=== PATIENT | female | born 1950 | race African-American/Black ===

== ENCOUNTER 2018-07-24 08:14 | Day surgery (SDC) | payer MEDICARE, MEDICAID ==
[2005-06-22 08:53] VITALS: BP 116/70
[~2018-07-24] VITALS: Ht 170.2 cm; Wt 135.5 kg
[2018-07-24 09:05] LABS: HEMOGLOBIN 11.4 g/dl (12.5-16.0); MEAN CELL VOLUME 90 fl (80.0-100.0); MEAN CORPUSCULAR HEMOGLOBIN 28 pg (27.0-31.0); MEAN CORPUSCULAR HGB CONC 31 g/dl (33.0-37.0); MEAN PLATELET VOLUME 10.9 fl (7.4-10.4); PLATELET COUNT 185 K/mm3 (130-400); RED BLOOD COUNT 4.05 M/mm3 (4.10-5.30); REDCELL DISTRIBUTION WIDTH-CV 15.7 % (11.5-14.5)
[2018-07-24 09:07] LABS: HEMATOCRIT 36.4 % (37.0-47.0)
[2018-07-24 09:10] LABS: INR 1.2 (0.8-3.0)
[2018-07-24 09:16] LABS: CALCIUM 9.7 mg/dL (8.4-10.2); CREATININE, serum 1.04 (0.52-1.25); POTASSIUM 3.4 mmol/L (3.4-5.0)
[2018-07-24] MEDS ORDERED: ELIQUIS 5MG PO (09:40)
[2018-07-24] MEDS ORDERED: PROAIR HFA0.09 MG/AC IH (09:40)
[2018-07-24] MEDS ORDERED: SYNTHROID0.1 MG/TAB PO (09:42)
[2018-07-24] MEDS ORDERED: ZIAC 10/6.25M1 UDTAB PO (09:42)
[2018-07-24] MEDS ORDERED: GLUCOPHAGE1000 MG PO (09:43)
[2018-07-24] MEDS ORDERED: ANTIVERT 25MG25 MG PO (09:43)
[2018-07-24] MEDS ORDERED: KLOR-CON 1010 MEQ PO (09:44)
[2018-07-24] MEDS ORDERED: ZOCOR 20MG20 MG PO (09:44)
[2018-07-24] MEDS ORDERED: DEMADEX5 MG PO (09:45)
[2018-07-24] MEDS ORDERED: ULTRAM 50MG TAB50 MG PO (09:46)
--- NOTE | 2018-07-24 10:00 | NUR ---
DR GODWIN INTO SEE PT AND NEED TO BE RESCHEDULED DUE TO ELIQUIS TAKEN . PM IV D'CD, PT DRESSED, DAUGHTER IN ROOM, REVIEWED DISCHARGE INST. FOR PROCEDURE ON PT FOR SATURDAY, OFFICE WILL CALL ON TIME, AND DIRECTIONS WHEN TO TAKE LAST ELIQUIS, MAY TAKE TONIGHT. BUT DO NOT TAKE FRI SAT OR SUN, AND DAY OF PROCEDURE. PT LEFT VIA W/C WITH DAUGHTER
== END 2018-07-24 10:30 | disposition home or self-care (01) ==
LOC: COL.CAR 08:14
PROVIDERS: Internal Medicine Cardiovascular Disease
DX: R94.39 Abnormal result of other cardiovascular function study (principal); I48.2 Chronic atrial fibrillation; Z95.0 Presence of cardiac pacemaker; I10 Essential (primary) hypertension; I38 Endocarditis, valve unspecified; I70.0 Atherosclerosis of aorta; I07.1 Rheumatic tricuspid insufficiency; E78.5 Hyperlipidemia, unspecified; E66.9 Obesity, unspecified; E11.9 Type 2 diabetes mellitus without complications; Z88.6 Allergy status to analgesic agent; Z53.8 Procedure and treatment not carried out for other reasons

== ENCOUNTER 2018-07-28 06:16 | Day surgery (SDC) | payer MEDICARE, MEDICAID ==
[2005-06-22 08:53] VITALS: BP 116/70
[~2018-07-28] VITALS: Ht 170.2 cm; Wt 135.6 kg
[2018-07-28] VITALS (12 sets, daily range): BP systolic 121–159; BP diastolic 64–109; PULSE 60–95; TEMP 98.4
[~2018-07-28 06:16] MED LIST: ANTIVERT 25MG25 MG PO; DEMADEX5 MG PO; ELIQUIS 5MG PO; GLUCOPHAGE1000 MG PO; KLOR-CON 1010 MEQ PO; PROAIR HFA0.09 MG/AC IH; SYNTHROID0.1 MG/TAB PO; ULTRAM 50MG TAB50 MG PO; ZIAC 10/6.25M1 UDTAB PO; ZOCOR 20MG20 MG PO
[2018-07-28 07:09] LABS: HEMATOCRIT 37.7 % (37.0-47.0); HEMOGLOBIN 11.6 g/dl (12.5-16.0); MEAN CELL VOLUME 89 fl (80.0-100.0); MEAN CORPUSCULAR HEMOGLOBIN 28 pg (27.0-31.0); MEAN CORPUSCULAR HGB CONC 31 g/dl (33.0-37.0); MEAN PLATELET VOLUME 10.2 fl (7.4-10.4); PLATELET COUNT 185 K/mm3 (130-400); RED BLOOD COUNT 4.22 M/mm3 (4.10-5.30); REDCELL DISTRIBUTION WIDTH-CV 15.8 % (11.5-14.5)
[2018-07-28 07:14] LABS: INR 1.2 (0.8-3.0); PROTHROMBIN TIME 13.9 SECONDS (9.7-12.8)
[2018-07-28 07:19] LABS: CALCIUM 9.6 mg/dL (8.4-10.2); CREATININE, serum 1.16 (0.52-1.25); POTASSIUM 3.9 mmol/L (3.4-5.0)
[2018-07-28] MEDS ORDERED: TYLENOL 500MG500 MG PO (07:43)
[2018-07-28] MEDS ORDERED: PRENATAL FORMU1 EAC3 PO (07:43)
[2018-07-28] MEDS ORDERED: CALCIUM 600MG+D1 TAB PO (07:44)
--- NOTE | 2018-07-28 08:58 | NUR ---
ALL MEDICATIONS GIVEN VORB WITH MD. SEE MERGE FOR ALL MEDICATION ADMIN TIMES. SEE MERGE FOR ALL RASS ASSESSMENTS DURING AND POST PROCEDURE.
[2018-07-28] MEDS ORDERED: ALDACTONE50 MG PO (09:51)
--- NOTE | 2018-07-28 14:55 | NUR ---
Discharge instructions given to pt.pt verbalizesunderstanding.INT removed,catheter tip intact.Pt ambulated to bathroom,dressing observed clean,dry,intact,and soft to touch.
== END 2018-07-28 15:01 | disposition home or self-care (01) ==
LOC: COL.CAR 06:16
PROVIDERS: Internal Medicine Cardiovascular Disease
DX: R94.39 Abnormal result of other cardiovascular function study (principal); I48.2 Chronic atrial fibrillation; Z95.0 Presence of cardiac pacemaker; I11.0 Hypertensive heart disease with heart failure; I50.1 Left ventricular failure, unspecified; I08.3 Combined rheumatic disorders of mitral, aortic and tricuspid valves; E78.5 Hyperlipidemia, unspecified; E66.9 Obesity, unspecified; E11.9 Type 2 diabetes mellitus without complications
CPT/HCPCS: C1760; C1894; J1644; J2250; J3010; Q9967

== ENCOUNTER 2019-12-11 10:59 | Inpatient (IN) | payer MEDICARE, MEDICAID ==
[~2019-12-11] VITALS: Ht 167.6 cm; Wt 115.5 kg
[~2019-12-11 10:59] MED LIST changes: +ALDACTONE50 MG PO; +CALCIUM 600MG+D1 TAB PO; +CEPHALEXIN500 M1 PO; +PRENATAL FORMU1 EAC3 PO; +TYLENOL 500MG500 MG PO; +VITAMIN C500 MG PO
[2019-12-11 13:56] VITALS: BP 122/70; PULSE 78; TEMP 98.5
[2019-12-11] MEDS ORDERED: ALBUTEROL0.83 MG/ML IH (15:17)
[2019-12-11] MEDS ORDERED: MAG-OX 400400 MG/TAB PO (15:22)
[2019-12-11] MEDS ORDERED: K-DUR 10 MEQ T10 MEQ PO (15:26)
[2019-12-11] MEDS ORDERED: METAMUCIL3.4 GM/DOS PO (15:27)
[2019-12-11 18:10] VITALS: BP 128/62; PULSE 70; TEMP 98.5
--- NOTE | 2019-12-11 18:53 | NUR ---
PATIENT ARRIVED AROUND NOON VIA WC TO ROOM 336. PATIENT WAS HELPED TO BATHROOM AT THIS TIME. MOD ASSIST X1 WITH FWW. PATIENT DENIED PAIN AT THIS TIME. REPORT RECEIVED FROM HUSSEIN AT [employer] PHONE NUMBER [phone]. PATIENT REPORTED ACHING IN RIGHT KNEE THIS LIANA AFTER THERAPY. REPORTS HX OF ARTHRITIS IN THIS KNEE. PATIENT IN BED READING AT BEDSIDE SHIFT REPORT.
--- NOTE | 2019-12-11 19:00 | NUR ---
PT RESTING IN BED. WATCHING TV AND READING PAPERS. NO NEEDS AT THIS TIME. CALL LIGHT IN REACH. BED ALARM SET. DENIES PAIN.
[2019-12-12 05:48] VITALS: BP 144/71; PULSE 63; TEMP 98.6
--- NOTE | 2019-12-12 13:34 | NUR ---
Called Pa to get DC orders faxed over. See med changes. Patient reports arthritis pain, but refused any prn pain meds. Reviewed meds with patient. Denies questions at this time.
--- NOTE | 2019-12-12 14:53 | NUR ---
Patient resting in bed, call light in reach and bed alarm set. Patient attended group therapy this morning. Reviewed med list with patient. Tolerated diet well today. Sister just left for the day following her visit. Patient denies any questions at this time.
[2019-12-12 17:05] VITALS: BP 114/74; PULSE 61; TEMP 97.6
--- NOTE | 2019-12-12 21:00 | NUR ---
PT RESTING IN BED. A&O X3. NO RESP DISTRESS. PT REPORTS ARTHRITIS PAIN BUT DENIES NEED FOR PAIN MED. NO NEEDS AT THIS TIME. CALL LIGHT IN REACH. BED ALARM SET.
[2019-12-13 05:36] VITALS: BP 118/64; PULSE 67; TEMP 97.8
--- NOTE | 2019-12-13 10:46 | NUR ---
Patient did her own hygiene this morning was set up for washing self. Independent with her oral and face hygiene sitting in wheelchair. Set up for dressing upper and lower. Patient denies pain this morning. Very talkative and had multiple family members calling her and visting on the phone this morning. Patient currently resting in wheelchair, call light in reach and alarm set.
--- NOTE | 2019-12-13 14:06 | NUR ---
Plan: TO return home, lives independently. Assessment: SW met with patients in room. Patient reports that she resides in [place]. Patient reports that she drives but has difficulty seeing sometimes due to the pressure in her eyes. Patient reports that she uses the [employer] to support in transportation and food shopping. Patient reports that she also helps others and will drive if she needs too. Patient reports that she uses a cane while in the community. Patient reprots that her PCP is Dr. Guo in [place] and she prefers [facility] on [address]. Pateint reports that she does not have anyone setup for emergency. Declines [facility]. Action: Patient reports concerns of obtaining her over the counter and medical transportation. SW educated on medication supports in community and other supports that she may be eligible for with insurance. Will continue to support for DC needs. medications.
--- NOTE | 2019-12-13 15:44 | NUR ---
Patient visiting with sister at this time sitting in her bed. She is working on her menu. Will continue to monitor.
[2019-12-13 17:14] VITALS: BP 112/71; PULSE 70; TEMP 98.4
--- NOTE | 2019-12-13 21:00 | NUR ---
PT SITTING IN RECLINER. WATCHING FOOTBALL ON TV. DENIES ANY NAUSEA. EATING HER SALAD FROM DINNER. ASSISTED TRANSFER TO BED MIN 1 ASSIST. ALITTLE UNSTEADY FROM SIT TO STAND. SLOW PACE. NEEDED ASSIST LIFTING LEGS INTO BED, SCD'S ON NOW BILAT - AGREED FOR ALITTLE WHILE. CALL LIGHT IN REACH. BED ALARM SET.
--- NOTE | 2019-12-14 00:13 | NUR ---
ASSITED PT TO BR W/ WALKER. SLOW GAIT. LT SIDE WEAAKER. ABLE TO PERFORM TOILETING HYGEINE PER SELF. THEN TO THE SINK FOR HS CARES. PT INDEPENDENT WITH THESE CARES WHILE IN WC. PT TO BED. ABLE TO LIFT LEGS UP INTO BED PER SELF. WORE SCD'S FOR AWHILE TONIGHT BUT REFUSES WHILE SLEEPING. CALL LIGHT IN REACH. BED ALARM SET.
[2019-12-14 05:43] VITALS: BP 145/79; PULSE 67; TEMP 97.8
[2019-12-14 08:17] LABS: BASO % 0.7 % (0.0-2.0); EOS # 0.2 (0.0-0.7); EOS % 3.3 % (0-4.0); GRAN # 3.2 (1.4-6.5); GRAN % 57.4 % (42.2-75.2); HEMATOCRIT 38.2 % (37.0-47.0); HEMOGLOBIN 12.5 g/dl (12.5-16.0); LYMPH # 1.4 (1.2-3.4); LYMPH % 25.5 % (20.0-51.0); MEAN CELL VOLUME 90 fl (80.0-100.0); MEAN CORPUSCULAR HEMOGLOBIN 29 pg (27.0-31.0); MEAN CORPUSCULAR HGB CONC 33 g/dl (33.0-37.0); MEAN PLATELET VOLUME 10.1 fl (7.4-10.4); MONO # 0.7 (0.1-0.6); MONO % 12.7 % (1.7-9.3); PLATELET COUNT 251 K/mm3 (130-400); RED BLOOD COUNT 4.27 M/mm3 (4.10-5.30)
[2019-12-14 08:23] LABS: CALCIUM 10.2 mg/dL (8.4-10.2); CREATININE, serum 1.44 (0.52-1.25); MAGNESIUM 2.1 mg/dL (1.6-2.3); POTASSIUM 4.1 mmol/L (3.4-5.0)
--- NOTE | 2019-12-14 08:44 | NUR ---
PATIENT RESTING IN BED AT BEDSIDE SHIFT REPORT. DENIES PAIN THIS AM, ASSISTED TO BATHROOM AND SEATED AT SINK TO BRUSH TEETH AND WASH FACE.
--- NOTE | 2019-12-14 10:13 | NUR ---
Initial visit; Patient appeared glad to have a visit from Elderly Caregiver and thanked Elderly Caregiver for offering encouragement and prayer. Elderly Caregiver will follow up.
--- NOTE | 2019-12-14 13:15 | NUR ---
Admission QIM scores were reviewed by the team. Code of 4 chosen for oral hygiene was determined by team discussion to be the most usual performance before interventions for this patient during the assessment period. Code of 4 chosen for toilet hygiene was determined by team discussion to be the most usual performance for this patient during the assessment period. Code of 3 for sit to stand was determined by team discussion to be the most usual performance for this patient during the assessment period. Code of 2 for chair/bed to chair transfers was determined by team discussion to be the most usual performance for this patient during the assessment period.--Nica Escalona, PD
[2019-12-14 16:36] VITALS: BP 120/70; PULSE 60; TEMP 97.6
--- NOTE | 2019-12-14 17:22 | NUR ---
PATIENT DENIED PAIN TODAY, PATIENT DOES WELL WITH SBA FOR MOST TASKS, IS SLOW WITH TASKS. PATIENT IN BED EATING DINNER, DENIES ANY NEEDS AT THIS TIME. CALL LIGHT WITHIN REACH, BED ALARM ON.
--- NOTE | 2019-12-14 19:00 | NUR ---
RECEIVED CHANGE OF SHIFT REPORT FROM DAY SHIFT NURSE. BED ALARM ON.
--- NOTE | 2019-12-14 20:00 | NUR ---
DENIES WEAKNESS/NUMBNESS/TINGLING TO EXTREMITIES, OBSERVED NO FACIAL DROOPING, DENIES SWALLOWING PROBLEMS, SPEAKS CLEARLY AND APPROPRIATELY. OBSERVED GAIT STEADY/EVEN. BED ALARM ON. DENIES ANY NEEDS AT THIS TIME.
[2019-12-15 05:22] VITALS: BP 138/78; PULSE 63; TEMP 97.5
--- NOTE | 2019-12-15 06:50 | NUR ---
Change of shift report given to day shift nurseIsaura. Bed alarm on.
--- NOTE | 2019-12-15 08:02 | NUR ---
PATIENT HELPED TO THE BATHROOM THIS AM AT BEDSIDE SHIFT REPORT. PATIENT ASSISTED TO WC TO PERFORM HYGIENE AT SINK. PATIENT DENIES PAIN THIS AM
--- NOTE | 2019-12-15 10:23 | NUR ---
Follow-up visit; Patient welcomed [employer]'s "Good morning," greeting this morning. continues prayer for Deliliah.
[2019-12-15 17:30] VITALS: BP 113/74; PULSE 83; TEMP 98
--- NOTE | 2019-12-15 18:26 | NUR ---
PATIENT REPORTED SOME DISCOMFORT IN SHOULDERS FROM MORE USE. REFUSED ANY PRN TYLENOL AT THIS TIME BUT REQUESTS SOME AT HS. PATIENT HAD NO COMPLAINTS TODAY, REPORTS HAVING A BM LAST NIGHT 12/13 BUT NONE WAS CHARTED. PATIENT RESTING IN CHAIR AT THIS TIME.
--- NOTE | 2019-12-15 19:40 | NUR ---
CHANGE OF SHIFT REPORT RECEIVED FROM DAY SHIFT NURSE. UP IN CHAIR WITH CHAIR ALARM ON.
--- NOTE | 2019-12-15 20:00 | NUR ---
PATIENT REQUESTING HS MEDS TO BE GIVEN CLOSER TO WHEN PATIENT IS READY TO SLEEP, AFTER HAVING SCD'S TAKEN OFF AROUND MIDNIGHT. NO OTHER NEEDS REPORTED. BED ALARM ON WHEN PATIENT IN BED.
--- NOTE | 2019-12-15 20:00 | NUR ---
PATIENT WITH NO C/O OR NEEDS REPORTED AT THIS TIME. BED ALARM ON. DENIES CHEST PAIN/SHORTNESS OF BREATH, DENIES NUMBNESS/TINGLING TO EXTREMITIES.
--- NOTE | 2019-12-16 02:54 | NUR ---
PATIENT SLEEPING, DOES NOT WAKE WHEN DOOR TO ROOM IS OPENED BY STAFF. BREATHING OBSERVED NONLABORED AND EVEN. BED ALARM ON.
[2019-12-16 06:01] VITALS: BP 125/76; PULSE 60; TEMP 97.3
--- NOTE | 2019-12-16 07:11 | NUR ---
CHANGE OF SHIFT REPORT GIVEN TO DAY SHIFT NURSEDARRYL. BED ALARM ON.
--- NOTE | 2019-12-16 11:23 | NUR ---
Patient was able to stand on her own with observation only this morning. She was independent on all her cares, but do them slower. She denied pain this morning. Will continue to monitor.
--- NOTE | 2019-12-16 16:16 | NUR ---
Tacking Stitch Remover met with the patient to review the Team Conference note. The team is recommending OP PT/OT. She was agreeable to doing this at [facility] but she would like to know how many times a week. She will take the senior bus to and from PT/OT. SW to staff with PT/OT to inquire about how many times a week the patient is to have OP PT/OT. The team was wanting to set up a family meeting on 12/16 at 1300. The patient's daughter is currently in chemo and radiation and the patient did not know if/when she would be available. The patient would like to call her daughter later this day to ask. Will follow up with this 12/16 in the am.
--- NOTE | 2019-12-16 17:29 | NUR ---
Patient attended all therapies today. Denied pain this shift. She was made independent in her room with a walker this afternoon. Patient is currently resting in bed, call light in reach with walker by her side eating her supper. Will continue to monitor.
[2019-12-16 18:33] VITALS: BP 121/67; PULSE 64; TEMP 97.4
--- NOTE | 2019-12-16 21:59 | NUR ---
PT MOD I IN ROOM WITH WALKER. DENIES NEEDS AT THIS TIME.
[2019-12-17 05:20] VITALS: BP 133/84; PULSE 68; TEMP 98
--- NOTE | 2019-12-17 09:02 | NUR ---
Patient was independent on all her cares this morning and is independent in her room. Patient reported that she can't wait to get home so that she will be able to sleep in her own bed. Patient reporting that she does not think the bed is comfortable and is the reason why she is not rested during the day. Patient denied pain this morning and is currently resting in recliner awaiting her morning therapies. She was hopeing to talk to the social sciences chair this morning. This nurse will call SW to let her know.
--- NOTE | 2019-12-17 09:12 | NUR ---
[employer] Director met with the patient to disucss the family meeting. The patient would like her daughter, Nasreen to be the person. SW contacted Birdie # [phone]. She will be available this day at 1300 for the meeting. Alternative phone # [phone].
[2019-12-17 18:01] VITALS: BP 139/81; PULSE 67; TEMP 97.8
--- NOTE | 2019-12-17 18:27 | NUR ---
Patient spoke with SW today about her [employer] space salesperson being her oldest daughter. Patient's wanting to see a neurologist in [place], but Dr. Zavala will not be seeing patient's in [place] after next week. Have referral fax to go out to Dr. Hackett, Neurology, tomorrow via the day nurse. She just needs to verify the fax number prior to faxing.
--- NOTE | 2019-12-17 21:00 | NUR ---
PT REPORTS BAUTISTA BETTER NOW. WATCHING TV. MOD I IN ROOM WITH WALKER. DENIES NEEDS.CALL LIGHT IN REACH.
--- NOTE | 2019-12-18 05:37 | NUR ---
PT HAD UNEVENTFUL NIGHT. MOD I IN ROOM.
[2019-12-18 05:58] VITALS: BP 138/80; PULSE 61; TEMP 97.4
--- NOTE | 2019-12-18 06:54 | NUR ---
PATIENT RESTING IN BED AT BEDSIDE SHIFT REPORT. IS MOD-I IN ROOM, ENCOURAGED TO STILL CALL WHEN NECESSARY.
--- NOTE | 2019-12-18 09:36 | NUR ---
Field Operations Coordinator met with the patient to inquire about which days of the week the patient preferred to start OP PT/OT at [facility]. She prefers to start on Saturday, 12/21. SW contacted [facility] and set an appointment for 12/21 at 10:30 am. It will be for PT. They will set up OT at that appointment. CRISTAL collaborated the above information with the patient's nurse.
--- NOTE | 2019-12-18 14:16 | NUR ---
The patient is to discharge home today, 12/17 with outpatient PT/OT at [facility]. There are no additional needs.
--- NOTE | 2019-12-18 16:34 | NUR ---
PATIENT HEALTH SUMMARY, DISCHARGE SUMMARY, AND HOME MEDS PRINTED AND REVIEWED WITH PT. STRESSED IMPORTANCE OF FOLLOW UP APPONTMENTS, REVIEWED MEDICATIONS. CALLED PRESCRIPTIONS FOR DISCHARGE MEDICATIONS TO [facility]. PT TRANSPORTED VIA BY NURSE AND SEATBELTED FOR RIDE HOME. PT AND RELATION DENIED QUESTIONS. THIS NURSE'S PHONE NUMBER PROVIDED FOR ANY F/U QUESTIONS.
== END 2019-12-18 16:18 | disposition home or self-care (01) | DRG 57 ==
PROVIDERS: ADMIT Internal Medicine
DX: I69.90 Unspecified sequelae of unspecified cerebrovascular disease (principal); Z68.41 Body mass index [BMI] 40.0-44.9, adult; I12.9 Hypertensive chronic kidney disease with stage 1 through stage 4 chronic kidney disease, or unspecified chronic kidney disease; N18.3 Chronic kidney disease, stage 3 (moderate); E03.9 Hypothyroidism, unspecified; E87.6 Hypokalemia; I48.91 Unspecified atrial fibrillation; J45.909 Unspecified asthma, uncomplicated; R26.9 Unspecified abnormalities of gait and mobility; E66.9 Obesity, unspecified; R53.81 Other malaise; E78.5 Hyperlipidemia, unspecified; Z79.01 Long term (current) use of anticoagulants; Z79.1 Long term (current) use of non-steroidal anti-inflammatories (NSAID); Z95.0 Presence of cardiac pacemaker; Z96.652 Presence of left artificial knee joint; Z88.8 Allergy status to other drugs, medicaments and biological substances
CPT/HCPCS: 99222-AI; 99231-AI; 99239

== ENCOUNTER 2023-01-01 07:49 | Day surgery (SDC) | payer MEDICARE ==
[~2023-01-01] VITALS: Ht 167.6 cm; Wt 117.9 kg
[~2023-01-01 07:49] MED LIST changes: +ALBUTEROL0.83 MG/ML IH; +K-DUR 10 MEQ T10 MEQ PO; +MAG-OX 400400 MG/TAB PO; +METAMUCIL3.4 GM/DOS PO
[2023-01-01 10:15] VITALS: BP 118/76; PULSE 70; TEMP 97.6
[2023-01-01 10:30] VITALS: BP 124/80; PULSE 74
[2023-01-01 10:45] VITALS: BP 125/76; PULSE 64
[2023-01-01 11:01] VITALS: BP 107/67; PULSE 67; TEMP 97.6
--- NOTE | 2023-01-01 11:25 | NUR ---
1015 RETURNS TO ROOM 3 PER CART. AWAKE, ALERT. RESP UNLABORED. AMBULATES TO RECLINER WITH STANDBY ASSIST. DENIES NAUSEA OR ABD PAIN. VITAL SIGNS OBTAINED. CALL LIGHT AT SIDE. FRIEND IN ROOM 1030 TOLERATES PO JUICE AND CHEESE WITHOUT NAUSEA. DISCHARGE INSTRUCTIONS REVIEWED. PATIENT VERBALIZES UNDERSTANDING. COPY PROVIDED IN DISCHARGE FOLDER. 1045 IV SITE DC'D. AWAITING DR. MUELLER 1100 DR. MUELLER HERE TO VISIT WITH PATIENT. 1110 DRESSES SELF, THEN AMBULATES TO BATHROOM WITH STAND BY ASSIST
== END 2023-01-01 11:25 | disposition home or self-care (01) ==
LOC: SDCO 07:49
DX: Z12.11 Encounter for screening for malignant neoplasm of colon (principal); R19.5 Other fecal abnormalities; K64.0 First degree hemorrhoids; K57.30 Diverticulosis of large intestine without perforation or abscess without bleeding; E66.9 Obesity, unspecified; Z86.010 Personal history of colon polyps; Z80.0 Family history of malignant neoplasm of digestive organs
CPT/HCPCS: J2704; J7120